=== PATIENT | male | born 1960 | race Caucasian/White ===

== ENCOUNTER 2020-02-15 15:49 | Emergency (ER) | payer OTHER ==
[~2020-02-15] VITALS: Ht 175.3 cm; Wt 79.4 kg
[2020-02-15] MEDS ORDERED: NORVASC 2.5 MG2.5 M1 PO (16:06)
[2020-02-15] MEDS ORDERED: LISINOPRIL2.5 MG PO (16:07)
[2020-02-15] MEDS ORDERED: FLOMAX0.4 MG PO (16:07)
[2020-02-15 16:14] LABS: URINE BILIRUBIN NEGATIVE (Negative); URINE BLOOD TRACE (Negative); URINE CLARITY CLEAR; URINE COLOR YELLOW; URINE GLUCOSE-RANDOM NEGATIVE (Negative); URINE KETONES NEGATIVE (Negative); URINE LEUKOCYTES-REFLEX NEGATIVE (Negative); URINE NITRITE-REFLEX NEGATIVE (Negative); URINE PROTEIN NEGATIVE (Negative); URINE SPECIFIC GRAVITY 1.015 (1.005-1.030); URINE UROBILINOGEN 0.2 E.U./dl (0.2-1.0)
[2020-02-15 16:19] LABS: ABSOLUTE BASOPHILS 0.1 thou/uL (0.0-0.2); ABSOLUTE LYMPHOCYTES 3.7 thou/uL (0.8-5.3); ABSOLUTE MONOCYTES 0.6 thou/uL (0.0-1.2); ABSOLUTE NEUTROPHILS 3.7 thou/uL (1.6-8.1); BASOPHILS 1.2 %; EOSINOPHILS 0.1 %; HEMATOCRIT 39.7 % (42.0-52.0); HEMOGLOBIN 13.7 gm/dL (14.0-18.0); LYMPHOCYTES 45.3 %; MCH 32.9 pg (26.0-34.0); MCHC 34.4 g/dL (28.0-37.0); MCV 95.4 fL (80.0-100.0); MPV 7.2 fl. (7.2-11.1); NUCLEATED RBCS 0 /100WBC; PLATELET COUNT* 275 thou/uL (150-400); POLYS 45.4 %; RBC 4.16 mil/uL (4.50-6.00); RDW-CV 14.9 % (10.5-14.5); WBC 8.1 thou/uL (4.0-11.0)
[2020-02-15 16:23] LABS: AMP/METHAMP Negative (Negative); BARBITURATES Negative (Negative); BENZODIAZEPINES Negative (Negative); COCAINE Negative (Negative); METHADONE Negative (Negative); OPIATES Negative (Negative); PCP Negative (Negative); THC Negative (Negative)
[2020-02-15 16:30] LABS: CALCIUM 8.1 mg/dL (8.5-10.1); CREATININE 1.1 mg/dL (0.6-1.3); POTASSIUM 3.7 mmol/L (3.5-5.1)
[2020-02-15 16:35] LABS: ALBUMIN 3.6 g/dL (3.4-5.0); TOTAL BILIRUBIN 0.2 mg/dL (<0.1-1.0); TOTAL PROTEIN 6.6 g/dL (6.4-8.2)
[2020-02-15 16:50] LABS: ALCOHOL 327 mg/dL (<10)
[2020-02-15 16:55] LABS: ACETAMINOPHEN < 2 ug/mL (10-30)
[2020-02-15 23:35] VITALS: BP 136/74
== END 2020-02-15 23:35 | disposition home or self-care (01) ==
LOC: M.ERS 15:49
PROVIDERS: Family Medicine
DX: F10.129 Alcohol abuse with intoxication, unspecified (principal); F32.9 Major depressive disorder, single episode, unspecified; R45.851 Suicidal ideations; I10 Essential (primary) hypertension; Y90.8 Blood alcohol level of 240 mg/100 ml or more

== ENCOUNTER 2020-02-29 16:24 | Emergency (ER) | payer OTHER ==
[~2020-02-29] VITALS: Ht 177.8 cm; Wt 74.8 kg
[~2020-02-29 16:24] MED LIST: FLOMAX0.4 MG PO; LISINOPRIL2.5 MG PO; NORVASC 2.5 MG2.5 M1 PO
[2020-02-29 17:25] LABS: HEMATOCRIT 38.7 % (42.0-52.0); HEMOGLOBIN 13.5 gm/dL (14.0-18.0); MCH 33.7 pg (26.0-34.0); MCHC 34.9 g/dL (28.0-37.0); MCV 96.6 fL (80.0-100.0); MPV 7.6 fl. (7.2-11.1); RBC 4.01 mil/uL (4.50-6.00); RDW-CV 15.8 % (10.5-14.5); WBC 7.2 thou/uL (4.0-11.0)
[2020-02-29 17:37] LABS: CALCIUM 8.1 mg/dL (8.5-10.1); CREATININE 1.2 mg/dL (0.6-1.3); POTASSIUM 3.7 mmol/L (3.5-5.1); PROTIME 10.7 Seconds (9.20-11.50)
[2020-02-29 17:47] LABS: ACETAMINOPHEN < 2 ug/mL (10-30); ALCOHOL 272 mg/dL (<10); SALICYLATE 2.7 mg/dL (2.8-20.0)
[2020-02-29 17:51] LABS: ALBUMIN 3.9 g/dL (3.4-5.0); TOTAL BILIRUBIN 0.3 mg/dL (<0.1-1.0); TOTAL PROTEIN 7.4 g/dL (6.4-8.2)
[2020-02-29 18:09] LABS: URINE BILIRUBIN NEGATIVE (Negative); URINE BLOOD TRACE (Negative); URINE CLARITY CLEAR; URINE COLOR YELLOW; URINE GLUCOSE-RANDOM NEGATIVE (Negative); URINE KETONES NEGATIVE (Negative); URINE LEUKOCYTES NEGATIVE (Negative); URINE NITRITE NEGATIVE (Negative); URINE PROTEIN 1+ (Negative); URINE UROBILINOGEN 0.2 E.U./dl (0.2-1.0)
[2020-02-29 18:17] LABS: AMP/METHAMP Negative (Negative); BARBITURATES Negative (Negative); BENZODIAZEPINES POSITIVE (Negative); COCAINE Negative (Negative); METHADONE Negative (Negative); OPIATES Negative (Negative); PCP Negative (Negative); THC Negative (Negative)
[2020-03-01 00:34] VITALS: BP 144/90
--- NOTE | 2020-03-01 13:03 | EKG ---
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
== END 2020-03-01 00:35 | disposition home or self-care (01) ==
LOC: M.ERS 16:24
PROVIDERS: Personal Emergency Response Attendant
DX: F10.129 Alcohol abuse with intoxication, unspecified (principal); M54.5 Low back pain; I10 Essential (primary) hypertension; Z79.899 Other long term (current) drug therapy; Y90.9 Presence of alcohol in blood, level not specified

== ENCOUNTER 2021-02-14 17:11 | Emergency (ER) | payer OTHER ==
[~2021-02-14] VITALS: Ht 180.3 cm; Wt 77.1 kg
[2021-02-14 17:37] LABS: HEMATOCRIT 40.3 % (42.0-52.0); HEMOGLOBIN 13.2 gm/dL (14.0-18.0); MCH 31.7 pg (26.0-34.0); MCHC 32.8 g/dL (28.0-37.0); MCV 96.7 fL (80.0-100.0); MPV 7.6 fl. (7.2-11.1); RBC 4.17 mil/uL (4.50-6.00); RDW-CV 15.3 % (10.5-14.5); WBC 7.5 thou/uL (4.0-11.0)
[2021-02-14 17:46] LABS: CALCIUM 8.2 mg/dL (8.5-10.1); CREATININE 1.1 mg/dL (0.6-1.3); POTASSIUM 4.2 mmol/L (3.5-5.1)
[2021-02-14 17:50] LABS: ALBUMIN 3.8 g/dL (3.4-5.0); TOTAL BILIRUBIN 0.2 mg/dL (<0.1-1.0); TOTAL PROTEIN 6.6 g/dL (6.4-8.2)
[2021-02-14 19:14] VITALS: BP 124/64
--- NOTE | 2021-02-15 09:44 | EKG ---
[place] [address] ELECTROCARDIOGRAM REPORT Name: NATHAN LAWSON Room: 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1960 Requested By: Mina Holden Order Number: [id number] MD: Erasmo Blanc Measurements Intervals [place] Rate: 93 P: 68 [place]: 143 QRS: -25 QRSD: 104 T: 69 QT: 330 QTc: 411 Interpretive Statements Sinus rhythm Borderline left axis deviation Anteroseptal infarct, age indeterminate possible Compared to ECG 02/29/2020 16:49:30 Left anterior fascicular block no longer present Electronically Signed On 02-15-2021 9:44:21 CDT by Erasmo Blanc [email or web address] <ELECTRONICALLY SIGNED> By: Erasmo Blanc MD, [facility] 02/15/21 0944 1732 1732 Erasmo Blanc MD, [facility] /EPI
== END 2021-02-14 19:14 | disposition home or self-care (01) ==
LOC: M.ERS 17:11
PROVIDERS: Emergency Medicine Emergency Medical Services
DX: F10.920 Alcohol use, unspecified with intoxication, uncomplicated (principal); I10 Essential (primary) hypertension; Z79.899 Other long term (current) drug therapy

== ENCOUNTER 2021-02-27 09:20 | Emergency (ER) | payer OTHER ==
[~2021-02-27] VITALS: Ht 177.8 cm; Wt 81.7 kg
[2021-02-27 09:43] LABS: ABSOLUTE BASOPHILS 0.1 thou/uL (0.0-0.2); ABSOLUTE EOSINOPHILS 0.1 thou/uL (0.0-0.7); ABSOLUTE LYMPHOCYTES 2.3 thou/uL (0.8-5.3); ABSOLUTE MONOCYTES 0.9 thou/uL (0.0-1.2); ABSOLUTE NEUTROPHILS 1.6 thou/uL (1.6-8.1); BASOPHILS 2.6 %; EOSINOPHILS 1.5 %; HEMATOCRIT 37.2 % (42.0-52.0); HEMOGLOBIN 12.8 gm/dL (14.0-18.0); LYMPHOCYTES 45.4 %; MCH 32.8 pg (26.0-34.0); MCHC 34.3 g/dL (28.0-37.0); MCV 95.6 fL (80.0-100.0); MONOCYTES 18.3 %; MPV 6.6 fl. (7.2-11.1); NUCLEATED RBCS 0 /100WBC; PLATELET COUNT* 272 thou/uL (150-400); POLYS 32.2 %; RBC 3.89 mil/uL (4.50-6.00); RDW-CV 15.1 % (10.5-14.5); WBC 5.1 thou/uL (4.0-11.0)
[2021-02-27 09:54] LABS: CALCIUM 7.7 mg/dL (8.5-10.1); CREATININE 0.8 mg/dL (0.6-1.3); POTASSIUM 3.4 mmol/L (3.5-5.1)
[2021-02-27 09:59] LABS: ALBUMIN 3.4 g/dL (3.4-5.0); TOTAL BILIRUBIN 0.2 mg/dL (<0.1-1.0); TOTAL PROTEIN 6.6 g/dL (6.4-8.2)
[2021-02-27 10:05] LABS: SALICYLATE 3.9 mg/dL (2.8-20.0)
[2021-02-27 10:06] LABS: ACETAMINOPHEN < 2 ug/mL (10-30)
[2021-02-27 10:07] LABS: ALCOHOL 461 mg/dL (<10)
[2021-02-27 12:55] LABS: URINE BILIRUBIN NEGATIVE (Negative); URINE BLOOD NEGATIVE (Negative); URINE CLARITY CLEAR; URINE COLOR YELLOW; URINE GLUCOSE-RANDOM NEGATIVE (Negative); URINE KETONES NEGATIVE (Negative); URINE LEUKOCYTES-REFLEX NEGATIVE (Negative); URINE NITRITE-REFLEX NEGATIVE (Negative); URINE PROTEIN TRACE (Negative); URINE SPECIFIC GRAVITY 1.025 (1.005-1.030); URINE UROBILINOGEN 0.2 E.U./dl (0.2-1.0)
[2021-02-27 12:59] LABS: AMP/METHAMP Negative (Negative); BARBITURATES Negative (Negative); BENZODIAZEPINES Negative (Negative); COCAINE Negative (Negative); METHADONE Negative (Negative); OPIATES Negative (Negative); PCP Negative (Negative); THC Negative (Negative)
[2021-02-27 15:25] VITALS: BP 153/101
--- NOTE | 2021-02-28 12:15 | EKG ---
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1960 Requested By: Theo Sorensen Order Number: [id number] MD: Kodi Eddy Measurements Intervals [place] Rate: 83 P: 70 [place]: 152 QRS: -10 QRSD: 111 T: 73 QT: 362 QTc: 426 Interpretive Statements Sinus rhythm with LAFB RSR' in V1 or V2, probably normal variant Compared to ECG 02/14/2021 17:32:33 Left anterior fascicular block now present Electronically Signed On 02-28-2021 12:14:14 CDT by Kodi Eddy [email or web address] <ELECTRONICALLY SIGNED> By: Kodi Eddy MD, [facility] 02/28/21 1214 0933 Kodi Eddy MD, [facility] /EPI
== END 2021-02-27 15:25 | disposition home or self-care (01) ==
LOC: M.ERS 09:20
PROVIDERS: Family Medicine
DX: F10.920 Alcohol use, unspecified with intoxication, uncomplicated (principal); I10 Essential (primary) hypertension